=== PATIENT | female | born 1995 | race Caucasian/White ===

== ENCOUNTER 2022-09-16 16:34 | Day surgery (SDC) | payer BC ==
[2022-09-16] MEDS ORDERED: hydrALAZINE 20 MG/ML VIAL SLOW IVP PRN (17:39)
[2022-09-16] MEDS ORDERED: Lactated Ringer's 1,000 ML IV SCH (17:45)
[2022-09-16 18:33] LABS: Bilirubin Neg (Negative); Blood, Urine Negative (Negative); Clarity Clear (Clear); Glucose, Urine (Dipstick) Normal (Negative); Ketone, Urine Negative (Negative); Leukocyte Negative (Negative); Nitrite Negative (Negative); Protein, Urine (Dipstick) Negative (Neg-Trace); Specific Gravity, Urine 1.015 (1.005-1.030); Urobilinogen Normal mg/dL (Less than 2)
[2022-09-16 20:13] VITALS: BMI 30.9
[2022-09-16] MEDS ORDERED: Butorphanol Tartrate 1 MG/ML VIAL SLOW IVP PRN (20:15)
== END 2022-09-16 21:32 | disposition home or self-care (01) ==
LOC: CSHLD/OP 16:34
PROVIDERS: ATTEND Obstetrics & Gynecology
DX: O26.893 Other specified pregnancy related conditions, third trimester (principal); R10.9 Unspecified abdominal pain; Z3A.29 29 weeks gestation of pregnancy
CPT/HCPCS: 76815; 81003; J0595

== ENCOUNTER 2022-10-22 16:09 | Day surgery (SDC) | payer BC ==
[2022-10-22] MEDS ORDERED: hydrALAZINE 20 MG/ML VIAL SLOW IVP PRN (17:00)
[2022-10-22 17:32] VITALS: BMI 32.4
[2022-10-22 17:40] LABS: Hemoglobin 11.6 g/dL (12.0-15.5); Mean Corpuscular HGB CONC 33.9 g/dL (32.0-36.0); Mean Corpuscular Hemoglobin 31.4 pg (27.0-33.0); Mean Corpuscular Volume 92.4 fl (81.6-98.3); Mean Platelet Volume 10.8 fl (7.4-10.4); Platelet Count 216 10x3/uL (150-450); RBC Distribution Width 13.3 % (11.5-14.5); White Blood Cell (WBC) Count 10.3 10x3/uL (3.5-10.5)
[2022-10-22 17:50] LABS: Creatinine, Urine 40.62 mg/dL (47-110); Protein, Urine Random Quant Less than 10 mg/dL (1-14)
[2022-10-22 17:51] LABS: ALT (SGPT) 12 U/L (8-55); AST (SGOT) 19 U/L (5-34); Albumin 3.1 g/dL (3.5-5.0); Alkaline Phosphatase 105 U/L (40-110); Anion Gap 12 mmol/L (10-20); BUN (Urea Nitrogen) 8 mg/dL (7.0-18.7); Bilirubin, Total 0.2 mg/dL (0.2-1.2); Calc. Creatinine Clearance 168 mL/min (70-130); Calcium 9.4 mg/dL (7.8-10.44); Carbon Dioxide 22 mmol/L (22-29); Chloride 109 mmol/L (98-107); Estimated GFR 120; Globulin 2.9 g/dL (2.4-3.5); Glucose 98 mg/dL (70-105); Potassium 3.5 mmol/L (3.5-5.1); Sodium 139 mmol/L (136-145)
== END 2022-10-22 18:01 | disposition home health service (06) ==
LOC: CSHLD/OP 16:09
PROVIDERS: ATTEND Obstetrics & Gynecology
DX: O12.03 Gestational edema, third trimester (principal); O47.03 False labor before 37 completed weeks of gestation, third trimester; O99.891 Other specified diseases and conditions complicating pregnancy; R51.9 Headache, unspecified; O99.343 Other mental disorders complicating pregnancy, third trimester; F41.9 Anxiety disorder, unspecified; Z86.16 Personal history of COVID-19; Z79.899 Other long term (current) drug therapy; Z3A.34 34 weeks gestation of pregnancy
CPT/HCPCS: 80053; 82570; 84156; 85027

== ENCOUNTER 2022-10-28 22:08 | Day surgery (SDC) | payer BC ==
[2022-10-28] MEDS ORDERED: hydrALAZINE 20 MG/ML VIAL SLOW IVP PRN (23:34)
== END 2022-10-29 01:41 | disposition home or self-care (01) ==
LOC: CSHLD/OP 22:08
PROVIDERS: ATTEND Obstetrics & Gynecology
DX: O47.03 False labor before 37 completed weeks of gestation, third trimester (principal); O99.343 Other mental disorders complicating pregnancy, third trimester; F41.9 Anxiety disorder, unspecified; Z86.16 Personal history of COVID-19; Z79.899 Other long term (current) drug therapy; Z3A.35 35 weeks gestation of pregnancy
CPT/HCPCS: 99283

== ENCOUNTER 2022-11-08 05:25 | Inpatient (IN) | payer BC ==
[2022-11-07 11:22] LABS: Hemoglobin 12.2 g/dL (12.0-15.5); Platelet Count 219 10x3/uL (150-450)
[2022-11-07 11:58] LABS: HBSAg Index 0.16 S/CO (0-0.99); Hep B Surf Ag Non-Reactive S/CO (NonReactive)
[2022-11-07 12:45] LABS: Syphilis Antibody Nonreactive (Nonreactive); Syphilis Antibody Index 0.04 S/CO (<1.00 Non-Reactive)
[2022-11-08] MEDS ORDERED: CEFAZOLIN 2 GM in Sodium Chloride 0.9% 100 ML IVPB SCH (06:19)
[2022-11-08] MEDS ORDERED: NS w/ Oxytocin 30 units 500 ML IV SCH (06:19)
[2022-11-08] MEDS ORDERED: Ondansetron PF 4 MG/2 ML Vial IVP PRN ×3 (06:19→08:54)
[2022-11-08] MEDS ORDERED: Famotidine/PF 20 mg/2ml Vial SLOW IVP PRN (06:19)
[2022-11-08] MEDS ORDERED: Promethazine HCl 25 MG/ML VIAL IM PRN ×2 (06:19→07:07)
[2022-11-08] MEDS ORDERED: hydrALAZINE 20 MG/ML VIAL SLOW IVP PRN ×2 (06:19→08:54)
[2022-11-08] MEDS ORDERED: Bicitra 30 ML UDCUP PO PRN (06:19)
[2022-11-08 06:21] VITALS: BMI 32.9
[2022-11-08] MEDS ORDERED: Ondansetron PF 4 MG/2 ML Vial ONE (06:58)
[2022-11-08] MEDS ORDERED: Oxytocin 10 UNITS/ML VIAL ONE (06:59)
[2022-11-08] MEDS ORDERED: Phenylephrine 40 MG/NS 250 ML 250 ML ONE (06:59)
[2022-11-08] MEDS ORDERED: Phenylephrine 10 MG/ML VIAL ONE (06:59)
[2022-11-08] MEDS ORDERED: Ketorolac Tromethamine 30 MG/ML VIAL ONE (06:59)
[2022-11-08] MEDS ORDERED: Dexamethasone 4 mg/ml Vial ONE (06:59)
[2022-11-08] MEDS ORDERED: Morphine PF 10 MG/10 ML VIAL ONE (07:02)
[2022-11-08] MEDS ORDERED: Meperidine HCl/PF 25 MG/ML VIAL SLOW IVP PRN (07:07)
[2022-11-08] MEDS ORDERED: Ondansetron HCl/PF 4 MG/2 ML Vial IVP PRN (07:07)
[2022-11-08] MEDS ORDERED: Naloxone HCl 0.4 mg/ml Vial IVP PRN ×2 (07:07)
[2022-11-08] MEDS ORDERED: Fentanyl 100 MCG/2 ML VIAL SLOW IVP PRN (07:07)
[2022-11-08] MEDS ORDERED: Ketorolac Tromethamine 30 MG/ML VIAL IVP PRN ×2 (07:07→11:54)
[2022-11-08] MEDS ORDERED: Promethazine HCl 25 MG SUPP PR PRN (07:07)
[2022-11-08] MEDS ORDERED: diphenhydrAMINE 50 MG/ML VIAL IVP PRN (07:07)
[2022-11-08] MEDS ORDERED: Moisturizing Cream (Eucerin) 113 GM JAR TOP PRN (07:07)
[2022-11-08] MEDS ORDERED: Naloxone HCl 0.4 mg/ml Vial IV PRN (07:07)
[2022-11-08] MEDS ORDERED: Ketorolac Tromethamine 30 MG/ML VIAL IVP SCH (07:15)
[2022-11-08] MEDS ORDERED: Communication Order-Pharmacy FS SCH (07:15)
[2022-11-08] MEDS ORDERED: Labetalol HCl 100 MG/20 ML VIAL ONE (07:55)
[2022-11-08] MEDS ORDERED: Promethazine HCl 25 MG/ML VIAL ONE (08:10)
[2022-11-08 08:25] LABS: pH (Cord, venous) 7.317 (7.250-7.350)
[2022-11-08] MEDS ORDERED: diphenhydrAMINE 25 MG CAP PO PRN (08:54)
[2022-11-08] MEDS ORDERED: Boostrix 0.5 ML (Tdap) VIAL (>/=7 yrs of age) IM ONE (08:54)
[2022-11-08] MEDS ORDERED: Bisacodyl 10 MG SUPP PR PRN (08:54)
[2022-11-08] MEDS ORDERED: Lanolin Ointment 7 GM TUBE TOP PRN (08:54)
[2022-11-08] MEDS: Prenatal Vitamin 1 TAB PO SCH (11:51)
[2022-11-08] MEDS: Ferrous Sulfate 325 MG TAB PO SCH ×2 (11:51→21:00)
[2022-11-08] MEDS: Docusate 100 MG CAP PO SCH ×2 (11:51→21:50)
[2022-11-09 05:12] LABS: Hemoglobin 8.5 g/dL (12.0-15.5); Mean Corpuscular HGB CONC 33.9 g/dL (32.0-36.0); Mean Corpuscular Hemoglobin 31.5 pg (27.0-33.0); Mean Platelet Volume 11.8 fl (7.4-10.4); Platelet Count 164 10x3/uL (150-450); RBC Distribution Width 13.5 % (11.5-14.5)
[2022-11-09] MEDS: Ibuprofen 800 MG TAB PO SCH ×3 (05:39→21:13)
[2022-11-09] MEDS: Docusate 100 MG CAP PO SCH ×3 (07:00→21:12)
[2022-11-09] MEDS: Prenatal Vitamin 1 TAB PO SCH (09:37)
[2022-11-09] MEDS: Ferrous Sulfate 325 MG TAB PO SCH ×2 (09:37→21:12)
[2022-11-09] MEDS: HYDROcodone/Acetaminophen 5/325 mg Tablet PO PRN ×3 (09:37→18:42)
[2022-11-09] MEDS: Simethicone Chewable 80 MG TAB PO PRN ×2 (14:10→18:42)
[2022-11-10] MEDS: HYDROcodone/Acetaminophen 5/325 mg Tablet PO PRN ×5 (00:32→21:34)
[2022-11-10] MEDS: Ibuprofen 800 MG TAB PO SCH ×3 (05:11→21:33)
[2022-11-10] MEDS: Docusate 100 MG CAP PO SCH ×2 (07:52→20:15)
[2022-11-10] MEDS: Ferrous Sulfate 325 MG TAB PO SCH ×2 (07:52→21:33)
[2022-11-10] MEDS: Prenatal Vitamin 1 TAB PO SCH (07:53)
[2022-11-10] MEDS ORDERED: Labetalol HCl 100 MG TAB PO SCH (09:00)
[2022-11-10] MEDS: Labetalol HCl 200 MG TAB PO SCH (20:15)
[2022-11-11] MEDS: Ibuprofen 800 MG TAB PO SCH (05:04)
[2022-11-11] MEDS: HYDROcodone/Acetaminophen 5/325 mg Tablet PO PRN ×2 (05:05→10:20)
[2022-11-11 05:10] VITALS: TEMP 98.3
[2022-11-11 07:26] VITALS: BP 145/86
[2022-11-11] MEDS: Docusate 100 MG CAP PO SCH (07:46)
[2022-11-11] MEDS: Prenatal Vitamin 1 TAB PO SCH (07:46)
[2022-11-11] MEDS: Labetalol HCl 200 MG TAB PO SCH (07:46)
[2022-11-11] MEDS: Ferrous Sulfate 325 MG TAB PO SCH (07:46)
[2022-11-11] MEDS ORDERED: Furosemide 20 MG TAB PO SCH (09:00)
== END 2022-11-11 11:15 | disposition home or self-care (01) | DRG 787 ==
LOC: CSHLD 05:25 → CSHPP 10:41
PROVIDERS: ADMIT Obstetrics & Gynecology; ATTEND Obstetrics & Gynecology
PROC: 10D00Z1 Extraction of Products of Conception, Low, Open Approach (ICD-10-PCS; principal; 2022-11-08)
DX: O32.1XX0 Maternal care for breech presentation, not applicable or unspecified (principal); D62 Acute posthemorrhagic anemia; O90.81 Anemia of the puerperium; Z3A.37 37 weeks gestation of pregnancy; Z37.0 Single live birth; O13.4 Gestational [pregnancy-induced] hypertension without significant proteinuria, complicating childbirth; O99.344 Other mental disorders complicating childbirth; F41.9 Anxiety disorder, unspecified; Z53.20 Procedure and treatment not carried out because of patient's decision for unspecified reasons; Z79.899 Other long term (current) drug therapy
CPT/HCPCS: 36415; 51702; 82805; 85014; 85018; 85027; 85049; 86780; 86850; 86900; 86901; 87340; J1100; J1885; J2274; J2370; J2405; J2550; J2590; J3490